=== PATIENT | male | born 1995 | race Caucasian/White ===

== ENCOUNTER 2021-03-30 18:30 | Outpatient (CLI) | payer BC, SELFPAY | END 2021-03-30 23:59 | disposition short-term general hospital (02) | PROVIDERS: Referring Provider Physician Assistant Surgical; Visit Provider Physician Assistant Surgical | DX: U07.1 COVID-19 (principal) | CPT/HCPCS: 87635; U0003; U0005 ==

== ENCOUNTER 2023-01-01 15:24 | Emergency (ER) | payer BC, SELFPAY ==
[2023-01-01 15:31] VITALS: BP 137/105; PULSE 66; RESP 18; TEMP 36.4; O2SAT 97; BMI 34.0
--- NOTE | 2023-01-01 15:48 | EDS_ITS ---
HPI <KELLY Jon - Last Filed: 01/01/23 17:55> History of Present Illness Chief Complaint: Bite Narrative Narrative: Patient presenting today due to dog bite that occurred to his face this afternoon. He reports that it was his family dog, he was getting in the dog's face trying to give it a kiss when the dog bit his top and bottom lip and right cheek. Tetanus is not up-to-date. Dog is up-to-date on all vaccines including rabies. He denies any other injury. Tetanus Immunization: Unknown [facility] <KELLY Jon - Last Filed: 01/01/23 17:55> [facility] Medical History Contact with and (suspected) exposure to other viral communicable diseases Home Medications Ibuprofen [Motrin] 800 mg PO TID PRN PRN Pain #20 tabs 12/14/13 [Rx Last Taken Unknown] ondansetron 4 mg disintegrating tablet 4 mg PO Q8H PRN nausea and vomiting 7 days #21 tabs 12/26/22 [Rx Last Taken Unknown] amoxicillin 875 mg-potassium clavulanate 125 mg tablet 1 tab PO BID 7 days #14 tabs 01/01/23 [Rx Last Taken Unknown] Allergy/AdvReac Type Severity Reaction Status Date / Time No Known Allergies Allergy Verified 01/01/23 15:31 Social History Smoking Status: Never smoker ROS <KELLY Jon - Last Filed: 01/01/23 17:55> ROS ED Constitutional Constitutional ED: Denies chills or fever(s) Cardiovascular Cardiovascular: Denies chest pain Respiratory/Chest Respiratory/Chest: Denies cough or dyspnea Gastrointestinal Gastrointestinal: Denies abdominal pain, nausea or vomiting Musculoskeletal Musculoskeletal: Denies arthralgias or myalgias Integumentary Reports laceration Neurologic Neurologic: Denies weakness EXAM <KELLY Jon - Last Filed: 01/01/23 17:55> Physical Exam Const Vital Signs: 01/01/23 15:31 01/01/23 16:25 Temperature 97.5 F L Temperature Source Temporal Pulse Rate 66 76 Respiratory Rate 18 15 Blood Pressure 137/105 H Blood Pressure Mean 115 Pulse Ox 97 99 Oxygen Delivery Method Room Air Positive well nourished, well developed and no apparent distress General Appearance ED: well developed HEENT Reports normocephalic and head/scalp atraumatic HEENT Narrative: Small linear laceration to the right cheek, 0.5 cm laceration to the right upper lip, 0.5 cm laceration to the left lower lip, 1 cm linear laceration to the inside of the lower lip along the gumline. 0.5 cm linear laceration to the inside of the lower lip. Mouth ED: Yes moist mucous membranes normal Eyes PERRL and EOMs intact bilaterally Neck full ROM and supple Chest Wall inspection of chest normal Resp normal respiratory effort and clear to auscultation bilaterally Cardio regular rate and regular rhythm GI soft to palpation, non-tender, non-distended and no masses Back/Spine normal ROM and normal to inspection Extremity normal to inspection and full ROM Neuro oriented x3, CN's II-XII intact bilaterally, moves all extremities, no focal motor deficits and no sensory deficits noted Sensorium / Orientation: awake and alert Psych mental status grossly normal and thought process normal <Dr. Cesar Ellsworth MD - Last Filed: 01/01/23 16:27> Physical Exam Const Vital Signs: 01/01/23 15:31 01/01/23 16:25 Temperature 97.5 F L Temperature Source Temporal Pulse Rate 66 76 Respiratory Rate 18 15 Blood Pressure 137/105 H Blood Pressure Mean 115 Pulse Ox 97 99 Oxygen Delivery Method Room Air PROC <KELLY Jon - Last Filed: 01/01/23 17:55> Procedures Lacerations Laceration: Depth: Sub Q Laceration repair: Irrigated and Lidocaine with epi Number of Sutures/Yudi: 5 Suture Information: 5-0 (Chromic gut) Comment: 2 sutures to the top lip, 2 sutures to the bottom lip, 1 stitch to the inside of the bottom lip [facility] <KELLY Jon - Last Filed: 01/01/23 17:55> [facility] Narrative Medical decision making narrative: Patient presenting today due to a dog bite from the family dog. He is well- appearing and nontoxic. Tetanus will be updated here. He has an abrasion to his right cheek, right upper lip does have a laceration that goes through the vermilion border slightly, lower left lip laceration as well as a laceration along the gumline inside of the lip, no loose teeth. He does have a linear laceration to the inside of his lip as well. These were all repaired all sutures. He has been started on Augmentin with first dose here. The laceration inside his mouth along the gumline cannot be repaired, he has been encouraged to swish salt water around in his mouth for the next few days. He will be discharged home in stable condition and is comfortable with plan. I have personally performed a face to face assessment of the patient and have reviewed the [facility] Note. I performed a substantive portion of the visit including all aspects of the following. My foote findings include: History: Patient was bitten by family members dog in the face. Unknown tetanus. Bleeding controlled. Exam: Patient has an abrasion down the right cheek. But at the right upper lip he does have a break through the vermilion border mostly on the lip. This is only about 4 mm long. He has a similar cut on the lower left lip. These are both external. He also has a break in the skin internally on the lower left lip. Bleeding is all controlled. Medical Decision Making: We discussed risk benefits and options. We explained that oftentimes we do not so animal bites. But these areas are very cosmetic. They are on the face which has a lower rate of infection. We will cover him for antibiotics. We use mutual decision making and chose to clean these fully anesthetized and sutured them. <Dr. Cesar Ellsworth MD - Last Filed: 01/01/23 16:27> [facility] Narrative Medical decision making narrative: I have personally performed a face to face assessment of the patient and have reviewed the REINALDO Note. I performed a substantive portion of the visit including all aspects of the following. My foote findings include: History: Patient was bitten by family members dog in the face. Unknown tetanus. Bleeding controlled. Exam: Patient has an abrasion down the right cheek. But at the right upper lip he does have a break through the vermilion border mostly on the lip. This is only about 4 mm long. He has a similar cut on the lower left lip. These are both external. He also has a break in the skin internally on the lower left lip. Bleeding is all controlled. Medical Decision Making: We discussed risk benefits and options. We explained that oftentimes we do not so animal bites. But these areas are very cosmetic. They are on the face which has a lower rate of infection. We will cover him for antibiotics. We use mutual decision making and chose to clean these fully anesthetized and sutured them. Discharge Plan Triage Chief Complaint: Bite ED Midlevel Provider: Yanira Rivers ED Provider: Cesar Ellsworth Dx/Rx/DC Orders Clinical Impression: Dog bite, Laceration of lip Instructions: ED Dog Bite, ED Laceration, Lip or Mouth Prescriptions: New amoxicillin-pot clavulanate 875-125 mg tablet 1 tab PO BID 7 Days Qty: 14 0RF No Action ondansetron 4 mg tablet,disintegrating 4 mg PO Q8H PRN (Reason: nausea and vomiting) 7 Days Qty: 21 0RF Ibuprofen [Motrin] 800 MG tablet 800 mg PO TID PRN PRN (Reason: Pain) Qty: 20 0RF Stand Alone Forms: ED Work / School Excuse Primary Care Provider: Care Physician,No Primary Activity Restrictions/Additional Instructions: Take antibiotics as prescribed and follow-up with your PCP in the next 5 to 7 days. Please return for any worsening of your symptoms. Ice your lip several times a day for the next few days. Disposition Disposition: Home, Self Care Discharge Date/Time: 01/01/23 16:51
[2023-01-01] MEDS: Diphth,Pertuss(Acell),Tet Vac 0.5 ML Vial IM (15:52)
[2023-01-01] MEDS: Lidocaine 1% /Epi 1:100 (20ml) 20 ML Vial 10 ML INFILT (15:53)
[2023-01-01] MEDS: Amox/Clavulanate 875 MG Tablet PO (15:55)
[2023-01-01 16:25] VITALS: PULSE 76; RESP 15; O2SAT 99
== END 2023-01-01 16:51 | disposition home or self-care (01) ==
PROVIDERS: Emergency Provider Emergency Medicine; Visit Provider Emergency Medicine
DX: S01.511A Laceration without foreign body of lip, initial encounter (principal); W54.0XXA Bitten by dog, initial encounter; S01.512A Laceration without foreign body of oral cavity, initial encounter; S00.81XA Abrasion of other part of head, initial encounter; Z23 Encounter for immunization
CPT/HCPCS: 12011; 90471; 90715; 99284